=== PATIENT | male | born 1955 | race Caucasian/White ===

== ENCOUNTER 2019-03-06 08:00 | Outpatient (CLI) | payer OTHER ==
[~2019-03-06] VITALS: Ht 172.7 cm; Wt 95.5 kg
[2019-03-06 09:14] LABS: MICROSCOPIC NOT IND
[2019-03-06 09:23] LABS: BASOPHILS # (AUTO) 0.07 x10^3/uL (0-0.1); BASOPHILS % (AUTO) 1 % (0-1); EOSINOPHILS # (AUTO) 0.31 x10^3/uL (0-0.4); EOSINOPHILS % (AUTO) 4 % (1-7); LYMPHOCYTES # (AUTO) 2.49 x10^3/uL (1-3.4); LYMPHOCYTES % (AUTO) 33 % (22-44); MD NO; MEAN CORPUSCULAR HGB CONC 33.4 g/dL (33.2-36.2); MEAN CORPUSCULAR VOLUME 89.8 fL (81-97); MEAN PLATELET VOLUME 8.7 fL (7.4-10.4); MONOCYTES % (AUTO) 9 % (2-9); NEUTROPHILS # (AUTO) 3.99 x10^3/uL (1.8-6.8); NEUTROPHILS % (AUTO) 53 % (42-75); PLATELET COUNT 263 x10^3/uL (130-400); RED BLOOD COUNT 5.01 x10^6/uL (4.38-5.82); RED CELL DISTRIBUTION WIDTH 15.1 % (9.4-14.8)
[2019-03-06 09:25] LABS: CULTURE INDICATED? NO
[2019-03-06 09:33] LABS: ALANINE AMINOTRANSFERASE 49 U/L (12-78); ALBUMIN 3.9 g/dL (3.4-5.0); ANION GAP 5 mmol/L (5-15); CALCIUM 9.5 mg/dL (8.5-10.1); CHLORIDE 104 mmol/L (98-107); CREATININE 0.92 mg/dL (0.7-1.3)
[2019-03-06 09:35] LABS: ALKALINE PHOSPHATASE 55 U/L (45-117); BILIRUBIN,TOTAL 0.7 mg/dL (0.2-1.0); TOTAL PROTEIN 7.5 g/dL (6.4-8.2)
[2019-03-06 09:50] LABS: INTERNATIONAL NORMALIZED RATIO 1.01 (0.93-1.1); PROTHROMBIN TIME 10.6 Seconds (9.6-11.5)
[2019-03-06] MEDS ORDERED: POTA20TA6 PO (12:48)
[2019-03-06] MEDS ORDERED: METO-95 PO (12:48)
[2019-03-06] MEDS ORDERED: EMPA1TAB11 PO (12:48)
[2019-03-06] MEDS ORDERED: ASPI-496 PO (12:48)
[2019-03-06] MEDS ORDERED: SIMV20TA3 PO (12:48)
[2019-03-06] MEDS ORDERED: OMEP20TA62 PO (12:48)
[2019-03-06] MEDS ORDERED: PIOG30TA67 PO (12:48)
[2019-03-06] MEDS ORDERED: ACET-1757 PO (12:48)
[2019-03-06] MEDS ORDERED: CALC1WAF PO (12:48)
[2019-03-06] MEDS ORDERED: DULA1.5P INJ (12:48)
[2019-03-06] MEDS ORDERED: DIGO250T PO (12:48)
[2019-03-06] MEDS ORDERED: INSU100I32 SQ (12:48)
== END 2019-03-06 23:59 | disposition home or self-care (01) ==
LOC: STAR 08:00 → EDSTATUS 03-08 11:00
PROVIDERS: ATTEND Orthopaedic Surgery Orthopaedic Surgery of the Spine
DX: Z01.818 Encounter for other preprocedural examination (principal); M54.16 Radiculopathy, lumbar region
CPT/HCPCS: 36415; 71046; 80053; 81003; 85025; 85610; 85730; 93005

== ENCOUNTER 2019-03-15 08:37 | Day surgery (SDC) | payer OTHER ==
[~2019-03-15] VITALS: Ht 172.7 cm; Wt 97.7 kg
[~2019-03-15 08:37] MED LIST: ACET-1757 PO; ASPI-496 PO; CALC1WAF PO; DIGO250T PO; DULA1.5P INJ; EMPA1TAB11 PO; INSU100I32 SQ; METO-95 PO; OMEP20TA62 PO; PIOG30TA67 PO; POTA20TA6 PO; SIMV20TA3 PO
[2019-03-15 09:12] VITALS: BP 136/85
[2019-03-15] MEDS ORDERED: LACTATED RINGERS 1,000 ML IV SCH (09:17)
[2019-03-15] MEDS ORDERED: MIDAZOLAM 1 MG/ML, 2ML ONE (10:16)
[2019-03-15] MEDS ORDERED: FENTANYL PF 250 MCG/5ML ONE (10:17)
[2019-03-15] MEDS ORDERED: THROMBIN 5,000 UNIT VIAL TP ONE (10:22)
[2019-03-15] MEDS ORDERED: VANCOMYCIN 500 MG ONE (10:22)
[2019-03-15] MEDS ORDERED: BUPIVACAINE 0.25% ONE (10:22)
[2019-03-15] MEDS ORDERED: LIDOCAINE/PF 0.5% ,50ML ONE (10:22)
[2019-03-15] MEDS ORDERED: EPINEPHRINE 1 MG/ML, 1ML ONE (10:23)
[2019-03-15] MEDS ORDERED: SCOPOLAMINE PATCH, 1.5MG PATCH.TD72 TD ONE (10:57)
[2019-03-15] MEDS ORDERED: KETOROLAC 30 MG/1 ML ONE (11:19)
[2019-03-15] MEDS ORDERED: MEPERIDINE/PF 25MG/0.5ML IVPush PRN (13:00)
[2019-03-15] MEDS ORDERED: KETOROLAC 30 MG/1 ML IV PRN (13:00)
[2019-03-15] MEDS ORDERED: FENTANYL PF 100 MCG/2ML IV PRN (13:00)
[2019-03-15] MEDS ORDERED: ALBUTEROL SULFATE 2.5 MG/3 ML NPPB PRN (13:00)
[2019-03-15] MEDS ORDERED: LABETALOL 5MG/ML, 20ML IV PRN (13:00)
[2019-03-15] MEDS ORDERED: HYDROmorphone 2 MG/ML, 1ML IVPush PRN (13:00)
[2019-03-15] MEDS ORDERED: ACETAMINOPHEN 325 MG TABLET PO PRN (13:00)
[2019-03-15] MEDS ORDERED: hydrALAzine 20 MG/ML, 1ML IV PRN (13:00)
[2019-03-15] MEDS ORDERED: PROMETHAZINE 25 MG/ML, 1ML IV PRN (13:00)
[2019-03-15] MEDS ORDERED: DIAZEPAM 5 MG/ML, 2ML IVPush PRN (13:00)
[2019-03-15] MEDS ORDERED: OXYcodone 5 MG/5 ML ORAL.SOL UDC PO PRN (13:00)
[2019-03-15] MEDS ORDERED: ONDANSETRON 2MG/ML, 2ML ONE (13:27)
[2019-03-15] MEDS ORDERED: NEOSTIGMINE 1 MG/ML, 10ML ONE (13:27)
[2019-03-15] MEDS ORDERED: GLYCOPYRROLATE 0.2MG/1ML, 5ML ONE (13:27)
[2019-03-15] MEDS ORDERED: ROCURONIUM 10MG/ML,5ML ONE (13:27)
[2019-03-15] MEDS ORDERED: CEFAZOLIN 1,000 MG ONE (13:27)
[2019-03-15] MEDS ORDERED: SUCCINYLCHOLINE 20 MG/ML, 10ML ONE (13:27)
[2019-03-15] MEDS ORDERED: PROPOFOL 10 MG/ML, 20ML ONE (13:27)
[2019-03-15] MEDS ORDERED: DEXAMETHASONE 4 MG/ML, 1ML ONE (13:27)
[2019-03-15] MEDS ORDERED: TOBRAMYCIN SULFATE 1.2 GM IMP ONE (13:58)
[2019-03-15] MEDS ORDERED: METHOCARBAMOL 1,000 MG in DEXTROSE 5% 100 ML IV ONE (14:00)
== END 2019-03-15 15:25 | disposition home or self-care (01) ==
LOC: OUT 08:37
PROVIDERS: ATTEND Orthopaedic Surgery Orthopaedic Surgery of the Spine
DX: M51.26 Other intervertebral disc displacement, lumbar region (principal); I48.2 Chronic atrial fibrillation; I10 Essential (primary) hypertension; E11.9 Type 2 diabetes mellitus without complications; M21.371 Foot drop, right foot; E78.00 Pure hypercholesterolemia, unspecified; J45.909 Unspecified asthma, uncomplicated; G47.33 Obstructive sleep apnea (adult) (pediatric); E55.9 Vitamin D deficiency, unspecified; E66.9 Obesity, unspecified; Z68.32 Body mass index [BMI] 32.0-32.9, adult; Z79.82 Long term (current) use of aspirin; Z79.4 Long term (current) use of insulin; Z79.899 Other long term (current) drug therapy; Z72.89 Other problems related to lifestyle; Z88.0 Allergy status to penicillin; Z91.012 Allergy to eggs; Z98.84 Bariatric surgery status; Z98.890 Other specified postprocedural states; Z96.653 Presence of artificial knee joint, bilateral; Z83.3 Family history of diabetes mellitus; Z82.49 Family history of ischemic heart disease and other diseases of the circulatory system
CPT/HCPCS: 63030; 72100; 82962; J0171; J0330; J0690; J1100; J1885; J2001; J2250; J2405; J2704; J2710; J2800; J3010; J3260; J3370; J3490; J7120

== ENCOUNTER → 2019-10-19 | Outpatient (CLI) | payer OTHER ==
[~2019-10-19] MED LIST changes: -ACET-1757 PO; +ACET-2065 PO
[2019-10-19 10:29] LABS: BASOPHILS # (AUTO) 0.06 x10^3/uL (0-0.1); BASOPHILS % (AUTO) 1 % (0-1); EOSINOPHILS # (AUTO) 0.28 x10^3/uL (0-0.4); EOSINOPHILS % (AUTO) 4 % (1-7); LYMPHOCYTES # (AUTO) 2.43 x10^3/uL (1-3.4); LYMPHOCYTES % (AUTO) 30 % (22-44); MD NO; MEAN CORPUSCULAR HEMOGLOBIN 29.8 pg (27.5-34.5); MEAN CORPUSCULAR HGB CONC 32.8 g/dL (33.2-36.2); MEAN CORPUSCULAR VOLUME 90.8 fL (81-97); MEAN PLATELET VOLUME 8.5 fL (7.4-10.4); MONOCYTES # (AUTO) 0.76 x10^3/uL (0.2-0.8); MONOCYTES % (AUTO) 9 % (2-9); NEUTROPHILS % (AUTO) 57 % (42-75); PLATELET COUNT 289 x10^3/uL (130-400); RED BLOOD COUNT 5.09 x10^6/uL (4.38-5.82); RED CELL DISTRIBUTION WIDTH 16.5 % (9.4-14.8)
[2019-10-19 10:34] LABS: INTERNATIONAL NORMALIZED RATIO 1.03 (0.93-1.1); PROTHROMBIN TIME 10.8 Seconds (9.6-11.5)
[2019-10-19 10:38] LABS: MICROSCOPIC NOT IND
[2019-10-19 10:38] LABS: ALANINE AMINOTRANSFERASE 42 U/L (12-78); ALBUMIN 3.8 g/dL (3.4-5.0); ANION GAP 3 mmol/L (5-15); CALCIUM 9.6 mg/dL (8.5-10.1); CHLORIDE 104 mmol/L (98-107)
[2019-10-19 10:41] LABS: CULTURE INDICATED? NO
[2019-10-19 10:41] LABS: ALKALINE PHOSPHATASE 59 U/L (45-117); BILIRUBIN,TOTAL 0.5 mg/dL (0.2-1.0); CREATININE 0.87 mg/dL (0.7-1.3); TOTAL PROTEIN 7.4 g/dL (6.4-8.2)
== END | disposition home or self-care (01) ==
LOC: STAR 09:18
PROVIDERS: ATTEND Orthopaedic Surgery Orthopaedic Surgery of the Spine
DX: Z01.811 Encounter for preprocedural respiratory examination (principal)
CPT/HCPCS: 36415; 71046; 80053; 81003; 85025; 85610; 85730; 93005

== ENCOUNTER 2019-10-26 05:24 | Inpatient (IN) | payer OTHER ==
[~2019-10-26] VITALS: Ht 172.7 cm; Wt 102.7 kg
[2019-10-26] MEDS ORDERED: LIDOCAINE/PF 0.5% ,50ML ONE (06:19)
[2019-10-26] MEDS ORDERED: BUPIVACAINE/PF-EPI 0.25% 1:200K ONE (06:19)
[2019-10-26] MEDS ORDERED: LACTATED RINGERS 1,000 ML IV SCH (06:19)
[2019-10-26] MEDS ORDERED: THROMBIN 5,000 UNIT VIAL TP ONE (06:20)
[2019-10-26] MEDS ORDERED: VANCOMYCIN 500 MG ONE (06:20)
[2019-10-26] MEDS ORDERED: METO-99 PO (06:20)
[2019-10-26] MEDS ORDERED: VANCOMYCIN 1,000 MG ONE (06:20)
[2019-10-26] MEDS ORDERED: EPINEPHRINE 1 MG/ML, 1ML ONE (06:20)
[2019-10-26] MEDS ORDERED: ACET-1600 PO (06:47)
[2019-10-26] MEDS ORDERED: MIDAZOLAM 1 MG/ML, 2ML ONE (07:05)
[2019-10-26] MEDS ORDERED: FENTANYL PF 250 MCG/5ML ONE (07:09)
[2019-10-26] MEDS ORDERED: ROCURONIUM 10 MG/ML,10ML ONE (07:43)
[2019-10-26] MEDS ORDERED: DEXAMETHASONE 4 MG/ML, 1ML ONE (07:43)
[2019-10-26] MEDS ORDERED: PROPOFOL 10 MG/ML, 20ML ONE (07:43)
[2019-10-26] MEDS ORDERED: ONDANSETRON 2MG/ML, 2ML ONE (07:43)
[2019-10-26] MEDS ORDERED: CEFAZOLIN 1,000 MG ONE (07:43)
[2019-10-26] MEDS ORDERED: OXYcodone 5 MG/5 ML ORAL.SOL UDC PO PRN (08:30)
[2019-10-26] MEDS ORDERED: ACETAMINOPHEN 325 MG TABLET PO PRN (08:30)
[2019-10-26] MEDS ORDERED: PROMETHAZINE 25 MG/ML, 1ML IV PRN (08:30)
[2019-10-26] MEDS ORDERED: LABETALOL 5MG/ML, 20ML IV PRN (08:30)
[2019-10-26] MEDS ORDERED: ALBUTEROL SULFATE 2.5 MG/3 ML NPPB PRN (08:30)
[2019-10-26] MEDS ORDERED: DIAZEPAM 5 MG/ML, 2ML IVPush PRN (08:30)
[2019-10-26] MEDS ORDERED: hydrALAzine 20 MG/ML, 1ML IV PRN (08:30)
[2019-10-26] MEDS ORDERED: KETOROLAC 30 MG/1 ML IV PRN (08:30)
[2019-10-26] MEDS ORDERED: MEPERIDINE/PF 25MG/0.5ML IVPush PRN (08:30)
[2019-10-26] MEDS ORDERED: HYDROmorphone 2 MG/ML, 1ML IVPush PRN (08:30)
[2019-10-26] MEDS ORDERED: FENTANYL PF 100 MCG/2ML ONE (10:27)
[2019-10-26] MEDS ORDERED: ACETAMINOPHEN 650 MG/20.3 ML UDC ONE (10:27)
[2019-10-26] MEDS ORDERED: OXYcodone 5 MG/5 ML ORAL.SOL UDC ONE (10:28)
[2019-10-26] MEDS ORDERED: METHOCARBAMOL 1,000 MG in DEXTROSE 5% 100 ML IV ONE ×2 (10:30→13:30)
[2019-10-26] MEDS: FENTANYL PF 100 MCG/2ML IV PRN ×5 (10:31→11:06)
[2019-10-26] MEDS ORDERED: ONDANSETRON 2MG/ML, 2ML IV PRN (13:30)
[2019-10-26] MEDS ORDERED: BISACODYL 10 MG SUPP PR PRN (13:30)
[2019-10-26] MEDS ORDERED: HYDROcodone/APAP 10/325 MG TABLET PO PRN (13:30)
[2019-10-26] MEDS ORDERED: MAGNESIUM HYDROXIDE 8%, 30ML UDC PO PRN (13:30)
[2019-10-26] MEDS ORDERED: morphine SULFATE 10 MG/ML, 1ML IV PRN (13:30)
[2019-10-26] MEDS ORDERED: DIPHENHYDRAMINE 50 MG/ML, 1ML IVPush PRN (13:30)
[2019-10-26] MEDS ORDERED: D5%-0.9% NACL+KCL 20MEQ 1,000 ML IV SCH (13:30)
[2019-10-26] MEDS ORDERED: PROMETHAZINE 25 MG/ML, 1ML IM PRN (13:30)
[2019-10-26 13:45] VITALS: BP 121/72
[2019-10-26] MEDS: NS + 20MEQ KCL 1,000 ML IV SCH (13:52)
[2019-10-26] MEDS: CEFAZOLIN PMX 1GM/50ML 50 ML IVPB SCH (15:41)
[2019-10-26] MEDS: HYDROcodone/APAP 5/325 TABLET PO PRN ×2 (15:41→19:51)
[2019-10-26] MEDS: METHOCARBAMOL 750 MG in DEXTROSE 5% 100 ML IV SCH (19:35)
[2019-10-26 20:57] VITALS: BP 128/74
[2019-10-26] MEDS ORDERED: SIMVASTATIN 20 MG TABLET PO SCH (21:00)
[2019-10-26] MEDS ORDERED: DIGOXIN 0.25 MG TABLET PO SCH (21:00)
[2019-10-26] MEDS: METOPROLOL TARTRATE 100 MG TABLET PO SCH (21:45)
[2019-10-27] MEDS: NS + 20MEQ KCL 1,000 ML IV SCH (00:17)
[2019-10-27] MEDS: CEFAZOLIN PMX 1GM/50ML 50 ML IVPB SCH (00:17)
[2019-10-27] MEDS: EMPAGLIFLOZIN MC SCH ×2 (00:30→08:30)
[2019-10-27] MEDS: METFORMIN HCL MC SCH ×2 (00:30→08:30)
[2019-10-27 00:31] VITALS: BP 120/79
[2019-10-27] MEDS: HYDROcodone/APAP 5/325 TABLET PO PRN ×3 (00:31→10:47)
[2019-10-27] MEDS: METHOCARBAMOL 750 MG in DEXTROSE 5% 100 ML IV SCH ×2 (03:33→10:48)
[2019-10-27 04:50] VITALS: BP 118/66
[2019-10-27] MEDS ORDERED: OMEPRAZOLE 20 MG CAPSULE.DR PO SCH (06:00)
[2019-10-27 07:31] VITALS: BP 117/79
[2019-10-27] MEDS: METOPROLOL TARTRATE 100 MG TABLET PO SCH (08:40)
[2019-10-27] MEDS ORDERED: POTASSIUM CHLORIDE 20 MEQ TAB.ER.PRT PO SCH (09:00)
[2019-10-27] MEDS ORDERED: PIOGLITAZONE 15 MG TABLET PO SCH (09:00)
[2019-10-27] MEDS ORDERED: METOPROLOL TARTRATE 50 MG TABLET PO SCH (09:00)
[2019-10-27] MEDS ORDERED: SENNA/DOCUSATE TABLET PO SCH (09:00)
[2019-10-27] MEDS ORDERED: METH750T87 PO (12:35)
[2019-10-27] MEDS ORDERED: HYDR-3240 PO (12:36)
[2019-10-27] MEDS ORDERED: EMPAGLIFLOZIN PO SCH (21:00)
[2019-10-27] MEDS ORDERED: INSULIN GLARGINE 100 UNITS/ML, PEN SQ-INSULIN SCH (21:00)
[2019-10-27] MEDS ORDERED: METFORMIN HCL PO SCH (21:00)
[2019-10-28] MEDS ORDERED: METHOCARBAMOL 750 MG TABLET PO SCH (12:30)
== END 2019-10-27 13:10 | disposition home or self-care (01) | DRG 460 ==
LOC: ORIP 05:24 → 4NE 11:43 → DCLOUNGE 10-27 12:59
PROVIDERS: ADMIT Orthopaedic Surgery Orthopaedic Surgery of the Spine; ATTEND Orthopaedic Surgery Orthopaedic Surgery of the Spine
PROC: 4A11X4G Monitoring of Peripheral Nervous Electrical Activity, Intraoperative, External Approach (ICD-10-PCS; 2019-10-26)
PROC: 0SG00AJ Fusion of Lumbar Vertebral Joint with Interbody Fusion Device, Posterior Approach, Anterior Column, Open Approach (ICD-10-PCS; principal; 2019-10-26 07:00)
DX: M48.061 Spinal stenosis, lumbar region without neurogenic claudication (principal); M54.16 Radiculopathy, lumbar region; M43.16 Spondylolisthesis, lumbar region; I48.91 Unspecified atrial fibrillation; I10 Essential (primary) hypertension; E11.9 Type 2 diabetes mellitus without complications
CPT/HCPCS: 72100; 82962; C1713; G0378; J0171; J0690; J1100; J2001; J2250; J2405; J2704; J3010; J3370; J3480; C1762; J1815; J2800; J7120